=== PATIENT | female | born 1960 | race Caucasian/White ===

== ENCOUNTER → 2017-11-04 | Outpatient (CLI) | payer BC ==
[~2017-11-04] MED LIST: BUPROBAN150 MG PO; CRESTOR 10MG10 MG PO; GLUCOPHAGE500 MG/TAB PO; LOTENSIN 1010 MG/TAB PO; PEPCID 20MG TAB20 MG PO
== END ==
LOC: MC.RAD 10-08 14:20
DX: Z12.31 Encounter for screening mammogram for malignant neoplasm of breast (principal)

== ENCOUNTER → 2019-04-09 | Outpatient (CLI) | payer BC | LOC: MC.RAD 12:54 | DX: Z12.31 Encounter for screening mammogram for malignant neoplasm of breast (principal) ==

== ENCOUNTER → 2020-05-03 | Outpatient (CLI) | payer BC | LOC: MC.RAD 14:15 | DX: Z12.31 Encounter for screening mammogram for malignant neoplasm of breast (principal) ==

== ENCOUNTER → 2021-05-15 | Outpatient (CLI) | payer BC ==
[~2021-05-15] MED LIST changes: +ALA 100MG PO; +BASAGLAR K100 UNIT/1 SQ; +CELEXA 20MG20 MG/TAB PO; -CRESTOR 10MG10 MG PO; +FARXIGA10 PO; +GLUCOPHAGE1000 MG PO; -GLUCOPHAGE500 MG/TAB PO; +LIPITOR 40MG TA40 MG PO; -LOTENSIN 1010 MG/TAB PO; +LOTENSIN20 MG PO; +MYSOLINE 5050 MG/TAB PO; +OMEGA-31 SGL PO; +VITAMIN B12 781 TAB PO; +ZESTRIL 10MG10 MG PO
== END ==
LOC: MC.RAD 08:42
DX: Z12.31 Encounter for screening mammogram for malignant neoplasm of breast (principal)

== ENCOUNTER 2021-07-24 07:07 | Day surgery (SDC) | payer BC ==
[~2021-07-24] VITALS: Ht 167.6 cm; Wt 79.2 kg
[~2021-07-24 07:07] MED LIST changes: -ALA 100MG PO; -BASAGLAR K100 UNIT/1 SQ; -CELEXA 20MG20 MG/TAB PO; -FARXIGA10 PO; -MYSOLINE 5050 MG/TAB PO; -OMEGA-31 SGL PO; -VITAMIN B12 781 TAB PO; -ZESTRIL 10MG10 MG PO
[2021-07-24 08:00] VITALS: BP 138/69; PULSE 55; TEMP 97.5
[2021-07-24] MEDS ORDERED: FARXIGA10 PO (08:08)
[2021-07-24] MEDS ORDERED: ZESTRIL 10MG10 MG PO (08:09)
[2021-07-24] MEDS ORDERED: MYSOLINE 5050 MG/TAB PO (08:10)
[2021-07-24] MEDS ORDERED: OMEGA-31 SGL PO (08:11)
[2021-07-24] MEDS ORDERED: ALA 100MG PO (08:12)
[2021-07-24] MEDS ORDERED: VITAMIN B12 781 TAB PO (08:12)
[2021-07-24] MEDS ORDERED: CELEXA 20MG20 MG/TAB PO (08:12)
[2021-07-24] MEDS ORDERED: BASAGLAR K100 UNIT/1 SQ (08:13)
[2021-07-24 09:00] VITALS: BP 103/53; PULSE 67; TEMP 97.5
[2021-07-24 09:15] VITALS: BP 106/57; PULSE 62
[2021-07-24 09:30] VITALS: BP 107/54; PULSE 59
--- NOTE | 2021-07-24 09:58 | NUR ---
Pt VS remain stable-see flowsheet. Pt denies nausea or pain. Tolerated oral intake. IV removed and pressure dressing applied. Pt dressed independently to personal clothing. Discharge teaching completed, pt verbalized understanding. Pt taken via wheelchair to private vehicle for dc home with driving.
--- NOTE | 2021-07-24 10:04 | NUR ---
Pt returned to recliner in bay 1 via cart post colonoscopy. Pt A&O. VSS-see flowsheet. Given requested muffin and drink. Call light in reach. Pt denies needs or complaints at this time.
== END 2021-07-24 09:58 | disposition home or self-care (01) ==
LOC: SDCO 07:07
DX: Z12.11 Encounter for screening for malignant neoplasm of colon (principal); K64.0 First degree hemorrhoids; E11.9 Type 2 diabetes mellitus without complications; I10 Essential (primary) hypertension; G25.0 Essential tremor; E78.5 Hyperlipidemia, unspecified; C56.9 Malignant neoplasm of unspecified ovary; Z20.822 Contact with and (suspected) exposure to COVID-19; Z79.4 Long term (current) use of insulin; Z79.899 Other long term (current) drug therapy
CPT/HCPCS: J2704; J7030

== ENCOUNTER → 2021-08-13 | Outpatient (CLI) | payer BC ==
[~2021-08-13] MED LIST changes: +ALA 100MG PO; +BASAGLAR K100 UNIT/1 SQ; +CELEXA 20MG20 MG/TAB PO; +FARXIGA10 PO; +MYSOLINE 5050 MG/TAB PO; +OMEGA-31 SGL PO; +VITAMIN B12 781 TAB PO; +ZESTRIL 10MG10 MG PO
== END ==
LOC: COL.LAB 16:00
DX: R19.7 Diarrhea, unspecified (principal)